=== PATIENT | male | born 1995 | race Caucasian/White ===

== ENCOUNTER 2017-01-19 09:44 | Emergency (ER) | payer MEDICAID ==
[~2017-01-19] VITALS: Ht 175.3 cm; Wt 74.8 kg
[2017-01-19 09:47] VITALS: BP_SYST 109
[2017-01-19] MEDS ORDERED: ONDANSETRON HCL 4 MG/2 ML VIAL IM ONE (10:30)
[2017-01-19 10:58] VITALS: BP_SYST 111
== END 2017-01-19 10:58 | disposition home or self-care (01) ==
LOC: SED 09:44
DX: M79.642 Pain in left hand (principal); M79.641 Pain in right hand
CPT/HCPCS: 96372; 99283; J2405